=== PATIENT | female | born 1955 | race Caucasian/White ===

== ENCOUNTER → 2016-06-07 | Outpatient (CLI) | payer BC ==
[2016-06-07 11:14] LABS: ALBUMIN 4.7 g/dL (3.4-5.0); ALKALINE PHOSPHATASE 111 U/L (38-126); ANION GAP 15.3 MEQ/L (3-15); BUN/CREATININE RATIO 17 (10-20); CALCULATED IONIZED CALCIUM 4.1 mg/dL (3.8-4.6); MAGNESIUM* 1.5 mg/dL (1.6-2.3)
[2016-06-12 20:19] LABS: HEPATITIS A ANTIBODY IGM Negative; HEPATITIS B CORE ABY IGM Negative; HEPATITIS B SURFACE ANTIGEN C Negative
== END ==
LOC: LAB 10:49
PROVIDERS: ATTEND Nurse Practitioner Family
DX: I10 Essential (primary) hypertension (principal); E03.9 Hypothyroidism, unspecified; E11.9 Type 2 diabetes mellitus without complications
CPT/HCPCS: 36415; 80053; 80061; 80074; 82043; 83036; 83735; 84443

== ENCOUNTER → 2016-07-20 | Outpatient (CLI) | payer BC ==
[~2016-07-20] MED LIST: ACET-789 PO; ACET1TAB43 PO; ALBU8.5H2 IH; AMD200T PO; AMIO200T2 PO; AMMO120C3 TP; ASPI-504 PO; ASPI1TAB22 PO; AZIT500T PO; BDS2MA INH; CALC-140 PO; CALC650T14 PO; CARV3.12T PO; CEFD300C PO; CEPH-507 PO; CLIN-78 PO; CLON1TAB3 PO; CLON2TAB3 PO; CODE-54 PO; CYCL10TA45 PO; DIPH25TA65 PO; DIPH50TA6 PO; DOXY-182 PO; DOXY100T41 PO; DUONEB 0.5 MG-33 ML IH; FERR324T4 PO; FLEC50TA3 PO; FLUT1AER IH; FURO20TA4 PO; FURO40TA4 PO; GABA300S PO; GBPN100C PO; GBPN300C PO; HDR2T PO; IPR14IN INH; LEVO25TA5 PO; LINA145C PO; LINA290C PO; LISI1TAB8 PO; LORA10TA7 PO; LOVA20TA2 PO; LOVA40TA2 PO; MECL-105 PO; MELA1TAB16 PO; MELA1TAB25 SL; MELA5TAB5 PO; MELO-249 PO; METF1000 PO; METH4TAB27 PO; METO25TA60 PO; MULT-955 PO; NCT21TD TD; NITR100C10 PO; OXYC1TAB87 PO; PIRB14AE2 IH; POTA10CA43 PO; PRED20TA PO; PRX10T PO; PRX20T PO; RIVA20TA PO; SIMV40TA2 PO; TERBIN250T PO; TIOT18CA IH; TIOT4MIS2 PO; TMZP15C PO; VIT C; ZINC50TA54 PO; ZOLP10TA; ZOLP5TAB PO
[2016-07-20 12:06] LABS: ANION GAP 15.1 MEQ/L (3-15); BUN/CREATININE RATIO 14 (10-20)
--- NOTE | 2016-07-20 13:02 | Diagnostic Imaging Report ---
INDICATION: Dyspnea, monitoring for long-term drug therapy. DISCUSSION: Two views of the chest were obtained, comparison 01/17/2016. Underlying COPD is stable. Left-sided pacemaker is present. Normal heart size. Mild age-related degenerative changes are noted throughout the thoracic spine. No acute osseous abnormality. No focal consolidation, pleural fluid, or pneumothorax. IMPRESSION: 1. Stable changes of COPD. Dictated by: Dictated on workstation # [id number]
== END ==
LOC: LAB 11:15
PROVIDERS: ATTEND Nurse Practitioner Family
DX: Z79.899 Other long term (current) drug therapy (principal); I48.91 Unspecified atrial fibrillation
CPT/HCPCS: 36415; 71020; 80048; 80061; 83036; 93005

== ENCOUNTER → 2016-09-01 | Outpatient (CLI) | payer BC ==
--- NOTE | 2016-09-01 15:12 | Diagnostic Imaging Report ---
EXAMINATION: Two-view chest dated 09/01/2016. INDICATION: Short of breath, COPD, coughing. COMPARISON: 07/20/2016. FINDINGS: The left-sided pacemaker is stable from previous imaging. The heart is minimally prominent. The pulmonary vasculature appears slightly congested. Increased markings at the lung bases likely due to superimposed soft tissues with mild atelectasis not excluded. There are no effusions. There is no pneumothorax. IMPRESSION: 1. Cardiomegaly with question mild pulmonary vascular congestion, correlate with symptoms. 2. Other findings as above. Dictated by: Dictated on workstation # [id number]
== END ==
LOC: RAD 14:42
PROVIDERS: ATTEND Nurse Practitioner Family
DX: R06.02 Shortness of breath (principal); I51.7 Cardiomegaly
CPT/HCPCS: 71020